=== PATIENT | female | born 1995 | race Caucasian/White ===

== ENCOUNTER 2020-03-22 12:25 | Emergency (ER) | payer BC, SELFPAY ==
[2020-03-22 12:39] VITALS: BP 131/78; PULSE 62; RESP 20; TEMP 37.2; O2SAT 98
--- NOTE | 2020-03-22 13:03 | ED.EAR ---
HPI - Ear Problem General Chief complaint: Ear Stated complaint: ear and throat pain Time Seen by Provider: 03/22/20 13:00 Source: patient and RN notes reviewed Mode of arrival: ambulatory Limitations: no limitations History of Present Illness HPI Narrative: 25-year-old female resents with concern for sore throat, right ear pain. Reports symptoms started several days ago. She denies fever, headache, nausea. Reports clear runny nose. Denies taking any medications for her symptoms MD Complaint: ear pain and other (Sore throat) Related Data Allergies Allergy/AdvReac Type Severity Reaction Status Date / Time azithromycin Allergy Unknown Rash Verified 03/22/20 12:58 red dye Allergy Unknown Rash Verified 03/22/20 12:58 Sulfa (Sulfonamide Allergy Unknown Rash Verified 03/22/20 12:58 Antibiotics) Review of Systems Review of Systems: Narrative: CONSTITUTIONAL: Denies malaise, chills, sweats, or fever. EYES: Denies visual changes, redness, or discharge. ENT: Reports rhinorrhea, sore throat, right ear pain. Denies congestion, sinus pain CARDIOVASCULAR: Denies chest pain, palpitations, or edema. RESPIRATORY: Denies cough or dyspnea. GASTROINTESTINAL: Denies abdominal pain, nausea, vomiting, diarrhea SKIN: Denies rash or itching. MUSCULOSKELETAL: Denies myalgia. NEUROLOGIC: Denies headache. All systems reviewed & are unremarkable except as noted in HPI and below PMFSH Comments At time of signature, agree with nursing past medical, surgical, social and family history. There is no relevant family history pertinent to the presenting complaint Exam Narrative: Exam Narrative: GENERAL: Well-appearing, well-nourished, and in no acute distress. HEAD: Normocephalic EYES: PERRLA, conjunctivae clear ENT: Nares clear, turbinates erythematous, clear discharge. Mucous membranes moist. TM pearly juarez with dull light reflex bilaterally; no tragal tenderness. Oropharynx not erythematous without lesions. Tonsils not enlarged and without exudate, no drooling, no hoarseness, no trismus, uvula midline. NECK: Supple. No lymphadenopathy CHEST: Clear to auscultation, breath sounds equal. No wheezing, rhonchi, rales, or stridor. No respiratory distress, speaks in full sentences. HEART: Regular rate and rhythm. No murmur heard. SKIN: Warm, dry, no rash. NEURO: Alert and oriented x3. PSYCH: Normal mood and affect Course Course Emergency Course: Patient is aware of diagnosis, understands and agrees to treatment plan. Anticipatory guidance given. Patient agrees to follow-up as directed and is aware of reasons to seek care at the emergency department. Portions of this record may have been created with voice recognition software Vital Signs Vital signs: Vital Signs Temperature 99 F 03/22/20 12:39 Pulse Rate 62 03/22/20 12:39 Respiratory Rate 03/22/20 12:39 Blood Pressure 131/78 03/22/20 12:39 Pulse Oximetry 98 03/22/20 12:39 Temperature 99 F 03/22/20 12:39 Pulse Rate 62 03/22/20 12:39 Respiratory Rate 03/22/20 12:39 Blood Pressure 131/78 03/22/20 12:39 Pulse Oximetry 98 03/22/20 12:39 Reviewed. Patient has been instructed to follow up with her primary care provider within the next week regarding her elevated blood pressure today. Medical Decision Making MDM Narrative Medical decision making narrative: Differential diagnosis considered: Strep pharyngitis, allergic rhinitis, upper respiratory tract infection, sinusitis, rhinosinusitis, nasopharyngitis. viral pharyngitis, otitis media, otitis externa, pneumonia, bronchitis, viral cough syndrome, viral syndrome, and influenza. Exam findings show no acute concerns or changes; patient is non-toxic appearing and is in no distress. Patient is appropriate for outpatient treatment and follow-up. Vital Signs Vital Signs: Vital Signs Temperature 99 F 03/22/20 12:39 Pulse Rate 62 03/22/20 12:39 Respiratory Rate 03/22/20 12:39 Blood Pressure 131/78 03/22/20
== END 2020-03-22 13:45 | disposition home or self-care (01) ==
PROVIDERS: Emergency Provider Nurse Practitioner
DX: J30.2 Other seasonal allergic rhinitis (principal)
CPT/HCPCS: 87081; 87880; 99213; G0463

== ENCOUNTER 2021-04-30 00:35 | Emergency (ER) | payer BC, SELFPAY ==
--- NOTE | ~2021-04-30 | CT_ITS ---
EXAMINATION: CT abdomen pelvis wo con DATE: 04/30/2021 01:43 INDICATION: Right flank pain TECHNIQUE: Computed tomography (CT) of the abdomen and pelvis was performed without intravenous contr ast. The dose-length product was 1381.08 mGy-cm. Automated exposure control and iterative reconstruct ion technique were employed. COMPARISON: Ultrasound abdomen dated 02/06/2015. FINDINGS: Lung bases are unremarkable. Heart size normal. No significant pleural or pericardial effus ion. The liver, spleen, pancreas, adrenal glands and kidneys are unremarkable. Nonobstructive bowel g as pattern. Normal appendix. IUD present in the uterus. No abnormal pelvic masses or fluid collection s. No significant vascular abnormality. Gallbladder is present. No lymphadenopathy. No renal/ureteral stone or hydronephrosis. There is a transitional L5 vertebra. Few scattered small bone islands noted in the pelvis and left femur. IMPRESSION: 1. No acute abdominal abnormality. Reviewed, dictated and finalized at location B.
[2021-04-30 00:49] VITALS: BP 101/80; PULSE 114; RESP 20; TEMP 36.8; O2SAT 97
[2021-04-30 01:13] LABS: Basophils Percent Auto 0.2 % (0.2-1.2); Eosinophils Percent Auto 0.1 % (0-4.4); Hematocrit 44.4 % (37.0-47.0); Hemoglobin 14.5 g/dL (12.0-15.0); Immature Granulocyte Absolute 0.05 K/mm3 (0.00-0.031); Immature Granulocyte Percent A 0.4 % (0-0.5); Lymphocytes Absolute Auto 0.83 K/mm3 (0.9-3.2); Lymphocytes Percent Auto 6.5 % (18.3-44.2); Mean Corpuscular HGB Conc 32.7 g/dl (32-36); Mean Corpuscular Hemoglobin 27.5 pg (26-34); Mean Corpuscular Volume 84.3 fl (80-100); Mean Platelet Volume 8.9 fl (7.4-10.4); Monocytes Absolute Auto 0.5 K/mm3 (0.1-0.6); Monocytes Percent Auto 4.1 % (2.6-8.5); Neutrophils Absolute Auto 11.3 K/mm3 (1.3-6.7); Neutrophils Percent Auto 88.7 % (45.5-73.1); Platelet Count Result 366 k/mm3 (150-375); Red Blood Count 5.27 M/mm3 (4.2-5.4); Red Cell Distribution Width 13.7 % (11.5-14.5); White Blood Count 12.7 K/mm3 (4.5-10.0)
[2021-04-30] MEDS: FAMOTIDINE 20 MG/2 ML VIAL IV PUSH (01:18)
[2021-04-30] MEDS: SODIUM CHLORIDE 0.9% IV 1,000 ML 999 ML IV CONT (01:18)
[2021-04-30] MEDS: ONDANSETRON INJ 4 MG/2 ML VIAL IV PUSH (01:18)
[2021-04-30 01:23] LABS: Add Urine Microscopic? YES; Appearance Urine Clear (Clear); Bacteria Urine Trace /hpf; Bilirubin Urine Negative (Negative); Blood Urine 1+ (Negative); Color Urine Yellow (Yellow); Glucose Urine UA Negative (Negative); Ketones Urine Negative (Negative); Leukocyte Esterase Ur Negative LEU/UL (Negative); Mucus Urine Few /lpf; Nitrate Urine Negative (Negative); Protein Urine 1+ mg/dL (Negative); Specific Grav Ur 1.028 (1.001-1.035); Squamous Epithelial Cell Urine Few /hpf (Few); Urobilinogen Urine Negative mg/dL (<2.0); WBC Urine 0-3 /hpf
[2021-04-30 01:26] LABS: Alanine Aminotransferase 16 U/L (4-35); Albumin Level 4.5 g/dL (3.5-5.1); Alkaline Phosphatase 107 U/L (38-126); Anion Gap 11 mmol/L (8-16); Aspartate Amino Transferase 23 U/L (14-36); Bilirubin,Total 0.5 mg/dL (0.2-1.3); Blood Urea Nitrogen 11 mg/dL (7-17); Calcium 9.4 mg/dL (8.4-10.2); Carbon Dioxide 21 mmol/L (22-30); Chloride 107 mmol/L (98-107); Estimated CRCL calculation 116 ml/min; Estimated Glomerular Filt Rate > 60; Glucose 115 mg/dL (65-105); Lipase 17 U/L (23-300); Potassium 3.7 mmol/L (3.4-5.0); Sodium 139 mmol/L (137-145)
--- NOTE | 2021-04-30 01:26 | ED.GENADULT ---
HPI - General Adult General Chief complaint: Abdominal Pain <Castillo James PA-C - Last Filed: 04/30/21 01:28> Stated complaint: upper back pain, diarrhea,vomititng <Castillo James PA-C - Last Filed: 04/30/21 01:28> Time Seen by Provider: 04/30/21 00:40 <Castillo James PA-C - Last Filed: 04/30/21 01:28> Source: patient, family and RN notes reviewed <Castillo James PA-C - Last Filed: 04/30/21 01:28> Mode of arrival: ambulatory <Castillo James PA-C - Last Filed: 04/30/21 01:28> Limitations: no limitations <Castillo James PA-C - Last Filed: 04/30/21 01:28> History of Present Illness HPI narrative: Patient is a 26-year-old female who presents with right sided back pain is a moderate aching pain worse with activity and movement present for the last 2 days has been having frequent diarrhea as well patient denies any rectal bleeding or melena no she had one episode of emesis patient denies sick contacts or similar occurrence in the past has tried [id number] medication with minimal improvement. Patient notes at home she had fever <Castillo James PA-C - Last Filed: 04/30/21 01:28> Related Data Allergies/adverse reactions: Allergies Allergy/AdvReac Type Severity Reaction Status Date / Time azithromycin Allergy Unknown Rash Verified 03/22/20 12:58 red dye Allergy Unknown Rash Verified 03/22/20 12:58 Sulfa (Sulfonamide Allergy Unknown Rash Verified 03/22/20 12:58 Antibiotics) <Castillo James PA-C - Last Filed: 04/30/21 01:28> Review of Systems Review of Systems: All systems reviewed & are unremarkable except as noted in HPI and below <Castillo James PA-C - Last Filed: 04/30/21 01:28> [facility]LY [facility] Past Medical History Medical History: Medical History (Updated 04/30/21 @ 01:28 by Castillo James PA-C) Depression <Castillo James PA-C - Last Filed: 04/30/21 01:28> Social History Social History: Social History (Updated 04/30/21 @ 01:27 by Castillo James PA-C) Smoking status: Never smoker <Castillo James PA-C - Last Filed: 04/30/21 01:28> Exam Narrative: Exam Narrative: GENERAL: Well-appearing, obese, and in no acute distress. HEAD: Normocephalic, atraumatic. EYES: PERRLA and EOMI. ENT: Nares clear, no rhinorrhea or epistaxis. Mucous membranes moist. NECK: Supple. No adenopathy or masses. No carotid bruits or JVD CHEST: Clear to auscultation. No respiratory distress. No wheezes rales or rhonchi HEART: Regular rate and rhythm. No murmur heard. Normal peripheral pulses. ABDOMEN: Soft, mild tenderness of the abdomen, nondistended EXTREMITIES: Normal range of motion. No edema. SKIN: Warm, dry, no rash. NEURO: No focal deficits. Alert and oriented x3. PSYCH: Normal mood and affect. <Castillo James PA-C - Last Filed: 04/30/21 01:28> Course Vital Signs Vital signs: Vital Signs Temperature 36.8 C 04/30/21 00:49 Pulse Rate 114 H 04/30/21 00:49 Respiratory Rate 20 04/30/21 00:49 Blood Pressure 101/80 04/30/21 00:49 Pulse Oximetry 97 04/30/21 00:49 Temperature 36.8 C 04/30/21 00:49 Pulse Rate 94 04/30/21 03:21 Respiratory Rate 20 04/30/21 03:21 Blood Pressure 122/78 04/30/21 03:21 Pulse Oximetry 99 04/30/21 03:21 <Castillo James PA-C - Last Filed: 04/30/21 01:28> Vital Signs Temperature 36.8 C 04/30/21 00:49 Pulse Rate 114 H 04/30/21 00:49 Respiratory Rate 20 04/30/21 00:49 Blood Pressure 101/80 04/30/21 00:49 Pulse Oximetry 97 04/30/21 00:49 Temperature 36.8 C 04/30/21 00:49 Pulse Rate 94 04/30/21 03:21 Respiratory Rate 20 04/30/21 03:21 Blood Pressure 122/78 04/30/21 03:21 Pulse Oximetry 99 04/30/21 03:21 <Christiano High MD - Last Filed: 04/30/21 03:34> Medical Decision Making Vital Signs Vital Signs: Vital Signs Temperature 36.8 C 04/30/21 00:49 Pulse Rate 114 H 04/30/21 00:49 Respiratory R
[2021-04-30] MEDS: HYOSCYAMINE SULFATE 0.125 MG TABLET PO (01:54)
[2021-04-30 03:21] VITALS: BP 122/78; PULSE 94; RESP 20; O2SAT 99
[2021-04-30 03:56] VITALS: BP 120/73; PULSE 97; RESP 16; O2SAT 98
== END 2021-04-30 03:56 | disposition home or self-care (01) ==
PROVIDERS: Emergency Medicine Emergency Medical Services; Emergency Provider Emergency Medicine; PCP Physician Assistant
DX: R10.9 Unspecified abdominal pain (principal); R19.7 Diarrhea, unspecified; M54.6 Pain in thoracic spine
CPT/HCPCS: 36415; 74176; 80053; 81001; 81025; 83690; 85025; 96365; 96366; 96375; 99284; A9270; J0131; J2405; J7030

== ENCOUNTER 2021-11-18 17:28 | Outpatient (CLI) | payer BC, SELFPAY ==
[2021-11-18 19:55] LABS: Hepatitis B Surface Antigen Negative (Negative)
[2021-11-18 20:01] LABS: HAV RESULT Negative (Negative); Hepatitis B Core IgM Result Negative (Negative)
[2021-11-18 20:13] LABS: Hepatitis C Virus Antibody Negative (Negative)
[2021-11-19 06:28] LABS: Rapid Plasma Reagin Non-Reactive (NonReactive)
[2021-11-25 12:56] LABS: HSV 1 IgM Screen Negative (Negative); HSV 2 IgM Screen Negative (Negative)
== END 2021-11-18 17:29 | disposition home or self-care (01) ==
LOC: ANHLAB 17:31
PROVIDERS: PCP Family Medicine; Visit Provider Family Medicine
DX: Z11.3 Encounter for screening for infections with a predominantly sexual mode of transmission (principal)
CPT/HCPCS: 36415; 80074; 86592; 86695; 86696